=== PATIENT | male | born 1970 | race Caucasian/White ===

== ENCOUNTER 2017-02-06 06:33 | Emergency (ER) | payer OTHER ==
[2017-02-06 06:47] VITALS: RESP 18
[2017-02-06] MEDS ORDERED: Albuterol-Ipratrop 3 mg / 0.5 (3 ml) UD ONE (07:51)
--- NOTE | 2017-02-06 07:54 | C.PDOC ---
History Of Present Illness 46 y/o male presents to ED with complaints of persistent right ankle pain for 4 days. Patient states on Saturday he slipped off steps and injured right ankle. Patient reports pain is worse when walking and denies any other new injury, loc , head injury or any other complaints at this time. Time Seen by Provider: 02/06/17 07:25 Chief Complaint (Nursing): Lower Extremity Problem/Injury History Per: Patient History/Exam Limitations: no limitations Onset/Duration Of Symptoms: Days Current Symptoms Are (Timing): Still Present Severity: Mild Recent travel outside of the [place]: No - Knee Description Of Injury: Twisted - Ankle/Foot Description Of Injury: Fell, Twisted Past Medical History Reviewed: Historical Data, Nursing Documentation, Vital Signs Vital Signs: Last Vital Signs Temp 98.3 F 02/06/17 08:40 Pulse 88 02/06/17 08:40 Resp 18 02/06/17 08:40 BP 120/81 02/06/17 08:40 Pulse Ox 95 02/06/17 08:40 - Medical History PMH: HTN Surgical History: No Surg Hx - [facility] Procedures INJECT/INFUSE NEC (10/30/13) Family History: States: No Known Family Hx - Social History Hx Alcohol Use: Yes Hx Substance Use: No - Immunization History Hx Tetanus Toxoid Vaccination: No Hx Influenza Vaccination: No Hx Pneumococcal Vaccination: No Review Of Systems Constitutional: Negative for: Fever, Chills Eyes: Negative for: Vision Change Cardiovascular: Negative for: Chest Pain Respiratory: Negative for: Shortness of Breath Musculoskeletal: Positive for: Foot Pain Skin: Negative for: Rash Neurological: Negative for: Weakness, Numbness, Headache Physical Exam - Physical Exam Appears: Non-toxic, No Acute Distress Skin: Warm, Dry, No Rash Head: Normacephalic Eye(s): bilateral: Normal Inspection Oral Mucosa: Moist Neck: Normal ROM, Supple Chest: Symmetrical Extremity: Tenderness (diffuse to right ankle), Capillary Refill (<2 seconds), No Deformity, No Swelling Extremity: Bilateral: Normal ROM Pulses: Left Dorsalis Pedis: Normal, Right Dorsalis Pedis: Normal Neurological/Psych: Oriented x3, Normal Motor, Normal Sensation ED Course And Treatment O2 Sat by Pulse Oximetry: 98 (RA) Pulse Ox Interpretation: Normal - Other Rad No standard instances X-Ray: Interpreted by Me Interpretation: Right ankle: no fx Progress Note: Treated with tylenol 650 mg PO. John bandage and aircast applied. Treated with crutches Reassessment Condition: Improved Medical Decision Making Medical Decision Making: Plan: XRAY, Tylenol Disposition Counseled Patient/Family Regarding: Studies Performed, Diagnosis, Need For Followup - Disposition Referrals: [facility]iat[facility] Clinic [Outside] [facility] [Outside] Disposition: HOME/ ROUTINE Disposition Time: 08:30 Condition: STABLE Additional Instructions: air cast and john bandage Motrin as needed for pain Instructions: Ankle Sprain (ED), Ankle Stirrup Splint (ED) Forms: [employer] (Turkish) - POA Present On Arrival: None - Clinical Impression Clinical Impression: 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 - Scribe Statement The provider has reviewed the documentation as recorded by the Scriblara Whitehead All medical record entries made by the Tayloriblara were at my direction and personally dictated by me. I have reviewed the chart and agree that the record accurately reflects my personal performance of the history, physical exam, medical decision making, and the department course for this patient. I have also personally directed, reviewed, and agree with the discharge instructions and disposition.
[2017-02-06 08:41] VITALS: BP 120/81; PULSE 88; TEMP 98.3
--- NOTE | 2017-02-06 09:53 | RAD ---
PROCEDURE: Right Ankle Radiographs. HISTORY: pain COMPARISON: None FINDINGS: BONES: Normal. No fracture. JOINTS: Normal. No osteoarthritis. Ankle mortise maintained. Talar dome intact SOFT TISSUES: Normal. OTHER FINDINGS: None. IMPRESSION: Normal right ankle radiographs.
[2017-02-06 18:14] VITALS: O2SAT 98
== END 2017-02-06 08:48 | disposition home or self-care (01) ==
LOC: C.ER 06:33
DX: S93.401A Sprain of unspecified ligament of right ankle, initial encounter (principal); W10.9XXA Fall (on) (from) unspecified stairs and steps, initial encounter